=== PATIENT | male | born 1990 | race Hispanic/Latino ===

== ENCOUNTER 2017-07-20 21:40 | Emergency (ER) | payer OTHER ==
[~2017-07-20] VITALS: Ht 165.1 cm; Wt 103.4 kg
[2017-07-20] MEDS ORDERED: ONDANSETRON HCL INJ 2 MG/ML VIAL IV ONE (21:42)
[2017-07-20] MEDS ORDERED: SODIUM CHLORIDE 0.9% 1000ML 1,000 ML STA (21:42)
[2017-07-20] MEDS ORDERED: PROMETHAZINE 25MG/ NS 50ML (IV) IV ONE (22:15)
[2017-07-20 22:47] VITALS: BP 141/87
== END 2017-07-20 22:45 | disposition home or self-care (01) ==
LOC: FSED 21:40 → EDSEX 21:40 → FSED 22:45
DX: K52.9 Noninfective gastroenteritis and colitis, unspecified (principal); E86.9 Volume depletion, unspecified
CPT/HCPCS: 80053; 85025; 96360; 96374; 96375; 99283; J2405; J7030